=== PATIENT | female | born 1985 | race Caucasian/White ===

== ENCOUNTER → 2017-04-09 14:46 | Observation (INO) ==
[2017-04-09 13:55] LABS: Bilirubin,Urine Negative (Negative); Blood,Urine Negative (Negative); Clarity,Urine Cloudy (Clear); Color,Urine Dark Yellow (Yellow); Glucose,Urine (UA) Normal (Normal); Ketones,Urine Negative (Negative); Leukocyte Esterase,Urine Small (Negative); Nitrite,Urine Negative (Negative); PH,Urine 6.5 pH Units (5.0-8.0); Protein,Urine Trace mg/dL (Neg-Trace); Specific Gravity,Urine 1.025 (1.010-1.025); Urobilinogen,Urine Normal (Normal)
[2017-04-09 13:57] LABS: Bacteria,Urine None Seen per hpf (None-Few); Hyaline Casts,Urine None Seen per lpf (None-Few); Squamous Epithelial Cell,Urine Many per lpf (None-Few)
[2017-04-09 14:05] LABS: RBC,Urine 0-3 per hpf (0-3)
--- NOTE | 2017-04-09 14:45 | Discharge Summary ---
Date of Encounter: 04/09/17 Time of Encounter: 14:44 - Discharge Diagnosis (1) 28 weeks gestation of Priority: Primary Status: Acute Comments: Patient admitted for observation for labor (2) NST (non-stress test) reactive on surveillance Priority: Secondary Status: Acute Comments: 130 bpm moderate variability +15x15 accels no decels noted. No contractions. (3) Round ligament pain Priority: Secondary Status: Acute Comments: comfort measures discussed - Discharge Medications Home Medications: Buspar 04/09/17 [History] Subutex 8 mg PO BID 04/09/17 [History] Allergies/Adverse Reactions: Allergies aspirin Allergy (Intermediate, Verified 05/19/15 11:58) Hives Penicillins Allergy (Intermediate, Verified 05/19/15 11:57) Hives clindamycin Allergy (Verified 10/20/16 10:34) Hives ibuprofen Adverse Reaction (Verified 08/10/16 08:43) Nausea tramadol Adverse Reaction (Verified 08/10/16 08:43) Nausea CONTROL Allergy (Uncoded 05/16/16 14:06) See Comments PT STATES IM ALLERGIC TO 75% OF CONTROL PINK/RED DYE Allergy (Uncoded 05/16/16 14:06) See Comments PT STATES IM ALLERGIC TO ANYTHING WITH RED OR PINK DYE Data Procedures and tests throughout hospitalization: Laboratory Tests 04/09/17 13:41 Urine Color Dark Yellow Urine Clarity Cloudy A Urine pH 6.5 Ur Specific [place]on 1.025 Urine Protein Trace Urine Glucose (UA) Normal Urine Ketones Negative Urine Blood Negative Urine Nitrite Negative Urine Bilirubin Negative Urine Urobilinogen Normal Ur Leukocyte Esterase Small H Urine Microscopic RBC 0-3 Urine Microscopic WBC 5-15 H Ur Squamous Epith Cells Many H Urine Bacteria None Seen Hyaline Casts None Seen Ur Culture Indicated? YES A Labs on day of discharge: Labs from last 24 hours 04/09/17 13:41 Urine Color Dark Yellow Urine Clarity Cloudy A Urine pH 6.5 Ur Specific Bouton 1.025 Urine Protein Trace Urine Glucose (UA) Normal Urine Ketones Negative Urine Blood Negative Urine Nitrite Negative Urine Bilirubin Negative Urine Urobilinogen Normal Ur Leukocyte Esterase Small H Urine Microscopic RBC 0-3 Urine Microscopic WBC 5-15 H Ur Squamous Epith Cells Many H Urine Bacteria None Seen Hyaline Casts None Seen Ur Culture Indicated? YES A Date of admission: 04/09/17 13:22 Primary care physician: Rosa Robles CNP Discharging clinician: Veronica Alonso Anticipated date of discharge: 04/09/17 - Patient Status Disposition: Home, Self-Care Condition: Good - Discharge Instructions Follow Up With: Rosa Robles CNP [Primary Care Provider] - Additional Instructions: LABOR AND DELIVERY DISCHARGE INSTRUCTIONS Signs and Symptoms to be Reported to your Doctor Immediately: * Sudden gush, continuous or intermittent lead of fluid from vagina (note the time of gush and color of fluid) * Onset of bright red vaginal bleeding with or without pain (if you had a vaginal exam during this visit you may notice some dark red spotting. This is normal.) * Lower abdominal cramping or backache that is premenstrual-like feeling. * More than 6 contractions in one hour. * Burning during urination, having to urinate more frequently or pain in your mid-back. * A change in the baby's activity. This could be an increase or decrease in activity. * Severe headache which does not go away with tylenol. * Sudden swelling in the face, hands, arms and/or legs. * Upper abdominal pain - sometimes associated with heartburn or nausea and is not relieved by Maalox, Mylanta or Tums. * Dizziness or blurred vision or visual disturbances (seeing stars/lights). * Kick Counts One hour after a meal, lay down on one side in a quiet place. Count the number of lay the baby moves during an hour. If less than 6 movements, notify your physician. Diet: *Force fluids - 8-10 tall glasses of fluid per day. May include popsicles and jello. *Limit caffeine - this includes chocolate, coffee, tea, any soft drink containing such as all jr, Arvin Yellow and Mountain Dew - Diet and Activity Activity: increase activity as tolerated Diet: regular diet Hospital Course LATEX DIPPER Hospital course: Patient is 32 y/o @ 28 weeks gestation presents to labor and delivery with complaints of sharp abdominal pain and lightheadedness. Patient has not ate anything and only drank a mountain dew. Patient denies LOF or VB. Patient reports +FM. UA sent to lab and WNL. Patient tender over round ligaments. Patient encouraged to drink water and eat frequent meals. Time Attestation: Total time spent providing and/or coordinating discharge services: Time Spent: Less than 30 minutes Exam - Constitutional General appearance IM: A&O X 3, pleasant, answers questions appropriately - Respiratory Respiratory exam: Present: CTAB - Cardiovascular Cardiovascular exam IM: Present: RRR, +S1, +S2 - GI/Abdominal GI/Abdominal exam IM: normal bowel sounds - Extremities Exam Extremities exam IM: Present: full ROM, normal capillary refill, normal inspection - Neurological Exam Neurological exam: alert, oriented X3, reflexes normal - Skin Additional comments: FHR 130 bpm moderate variability +15x15 accels no decels noted. No contractions noted. CAt. 1 tracing. - VTE Reasons for not Prescribing Prophylaxis: Treatment not Indicated - Low risk for VTE
== END | disposition home or self-care (01) ==
LOC: 1NENULAB

== ENCOUNTER → 2017-05-09 17:35 | Observation (INO) ==
[2017-05-09 16:10] LABS: Amphetamine Screen,Urine Negative ng/mL (Cutoff=1000); Barbiturate Screen,Urine Negative ng/mL (Cutoff=200); Benzodiazepines Screen,Urine Negative ng/mL (Cutoff=200); Cannabinoid Screen,Urine Negative ng/mL (Cutoff = 50); Cocaine Screen,Urine Negative ng/mL (Cutoff= 300); Opiate Screen,Urine Negative ng/mL (Cutoff=300); Phencyclidine Screen,Urine Negative ng/mL (Cutoff=25)
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
[~2017-05-09 17:35] MED LIST: Terbutaline 1 MG/ML VIAL SQ ONE
== END | disposition home or self-care (01) ==
LOC: 1NENULAB
PROVIDERS: ADMIT Obstetrics & Gynecology; ATTEND Obstetrics & Gynecology

== ENCOUNTER 2017-06-05 20:00 | Inpatient (IN) ==
[2017-06-05] MEDS ORDERED: Ondansetron 4 MG/2 ML VIAL IVP PRN (20:22)
[2017-06-05] MEDS ORDERED: Famotidine 20 MG/2 ML VIAL IVP PRN (20:22)
[2017-06-05] MEDS ORDERED: Naloxone 0.4 MG/ML INJ IVP PRN (20:22)
[2017-06-05] MEDS ORDERED: Ringers Solution, Lactated 1,000 ML IVC SCH (20:30)
[2017-06-05 21:23] LABS: Basophils % 0.2 %; Eosinophils # 0.3 K/mcL (0.0-0.6); Eosinophils % 3.8 %; Hematocrit 40.2 % (35.3-44.9); Hemoglobin 13.6 g/dL (11.5-15.4); Immature Granulocytes % 0.2 % (0-4); Immature Platelets 6.2 % (1.1-6.1); Lymphocytes # 1.6 K/mcL (0.6-4.6); Lymphocytes % 18.3 %; Mean Corpuscular HGB Conc 33.8 g/dL (31.6-35.5); Mean Corpuscular Hemoglobin 29.6 pg (28.0-33.3); Mean Corpuscular Volume 87.4 fL (83.0-100.0); Mean Platelet Volume 10.6 fL (9.4-12.4); Neutrophils # 5.7 K/mcL (1.6-8.9); Platelet Count 239 K/mcL (140-400); Red Cell Distribution Width 12.3 % (11.5-14.5); Segmented Neutrophils % 66.5 %
--- NOTE | 2017-06-05 21:30 | OB/GYN History & Physical ---
Date of Encounter: 06/05/17 Time of Encounter: 21:21 Assessment and Plan (1) 36 weeks gestation of Current visit: Yes Status: Acute Patient admitted for IOL PO cytotec at 0400 (2) IUGR (intrauterine growth restriction) Current visit: Yes Status: Acute admit for IOL (3) Tobacco use Current visit: Yes Status: Acute smoking cessation education given Nicotine patch if needed (4) complicated by subutex maintenance, antepartum Current visit: Yes Status: Acute Continue subutex as prescribed. (5) History of marijuana use Current visit: Yes Status: Acute UDS History of Present Illness Chief complaint: Schedule induction of labor for Severe IUGR HPI: Ms. Peterson is a 32 year old female at 36w3d presents for medical induction of labor for severe IUGR for Dr. Marquez. Ultrasound today gave EFW 1956g or 4#5oz <10%tile. KORIN 10cm 195 gram wt growth since 05/20/17. SD ratio 2.54/.61. Patient's is complicated by bipolar depression with major depression, HX of marijuana use, opiate abuse during , tobacco use and Subutex maintenance in . Patient reports + FM and irregular contractions. Patient denies LOF or VB. SVE in office today was /-1. Blood type: B+, Rubella: Immune, Hep B: nonreactive, GBS: Negative. Past Med Surg Social Fam HX - Past Medical History Source: patient Medical history: cancer Psychiatric history: bipolar, depression - Past Surgical History Surgical History: breast surgery, other - Social History Smoking Status: Current every day smoker Smokeless Tobacco Status: No Alcohol use: none Drug use: opiates (percocet, vicodin), marijuana, other (on subutex ) Current living situation: Home - Independent Activity Level: Independent ambulation Recent Out of Country Travel Within the Last 8 Weeks: No Exposure or Possible Exposure to Illness During Travel: No - Family History Mother Hx Family Endocrine Disorder: Yes (thyroid disorder) Obstetrical History - Pregnancies : 3 Para: 1 Term: 1 : 0 Ab's: 1 (ectopic) Livin Medications and Allergies Buspar 10 mg PO BID 04/09/17 [History] Subutex 8 mg PO BID 04/09/17 [History] 3 Allergy/AdvReac Type Severity Reaction Status Date / Time aspirin Allergy Intermediate Hives Verified 05/19/15 11:58 Penicillins Allergy Intermediate Hives Verified 05/19/15 11:57 clindamycin Allergy Hives Verified 10/20/16 10:34 ibuprofen AdvReac Nausea Verified 08/10/16 08:43 tramadol AdvReac Nausea Verified 08/10/16 08:43 CONTROL Allergy See Uncoded 05/16/16 14:06 Comments PINK/RED DYE Allergy See Uncoded 05/16/16 14:06 Comments Review of System OB - Constitutional Constitutional ROS IM: no fever(s), no headache(s) - Cardiovascular Cardiovascular: no chest pain, no palpitations, no syncope - Respiratory Respiratory: no dyspnea - Gastrointestinal Gastrointestinal: no abdominal pain, no constipation, no diarrhea, no heartburn , no nausea, no vomiting - Genitourinary Genitourinary: no abnormal vaginal bleeding, no dysuria, no flank pain, no urinary frequency, no urinary urgency, no vaginal discharge, no vaginal odor, no vaginal pruritis Exam - Constitutional Constitutional: well developed, well nourished, no acute distress, thin - HEENT HEENT: Normocephaly, Mucus Membranes Moist - Neck Neck exam: full ROM, supple - Lungs Respiratory exam: CTAB - Cardiovascular Cardiovascular exam: RRR, +S1, +S2 - Abdomen Abdomen: Present: bowel sounds normal, gravid, non tender - Extremities Extremities exam: full ROM, normal capillary refill Deep Tendon Reflex Grade: 2+ Normal - Comments Comments: FHR 130 bpm moderate variability +15x15 accels no decels noted. Cat. 1 tracing. No contractions noted at this time. Results All other labs normal. - VTE Reasons for not Prescribing Prophylaxis: Treatment not Indicated - Low risk for VTE
[2017-06-05 22:01] LABS: Amphetamine Screen,Urine Negative ng/mL (Cutoff=1000); Barbiturate Screen,Urine Negative ng/mL (Cutoff=200); Benzodiazepines Screen,Urine Negative ng/mL (Cutoff=200); Cannabinoid Screen,Urine Negative ng/mL (Cutoff = 50); Cocaine Screen,Urine Negative ng/mL (Cutoff= 300); Opiate Screen,Urine Negative ng/mL (Cutoff=300); Phencyclidine Screen,Urine Negative ng/mL (Cutoff=25)
[2017-06-05] MEDS ORDERED: NON-FORMULARY MEDICATION 1 EACH EACH (Subutex 8 MG) PO SCH (23:45)
[2017-06-05] MEDS ORDERED: Nicotine 21 MG PATCH.TD24 TD SCH (23:45)
[2017-06-06] MEDS: *HR* Buprenorphine HCl 8 MG TAB.SUBL SL SCH ×2 (00:23→12:54)
[2017-06-06] MEDS ORDERED: miSOPROStol 100 MCG TABLET PO ONE (04:00)
[2017-06-06] MEDS ORDERED: Vicks Vaporub Oint 50 GM PACKAGE TP ONE (05:06)
[2017-06-06] MEDS ORDERED: Epidural Premix (fent/bupiv) 110 ML EP ONE (07:59)
--- NOTE | 2017-06-06 08:31 | Anesthesia Procedures ---
Date of Encounter: 06/06/17 Time of Encounter: 08:22 Procedures: Anesthesia - Epidural/Spinal Patient ID/Chart reviewed: Yes Patient examined: Yes OB Eval: Gestational age: 36 OB Eval: : 3 OB Eval: Hx Para: 1 OB Eval: Dilated at (cm): 4 OB Eval: Contractions: Non-stressed pattern Consent Obtained: Yes Supplemental Oxygen: None/Room Air Site Prep: Aseptic Technique, Sterile prep and drape, 0.5% Chlorhexidine/Alcohol Patient position: right lateral decubitus Local Anesthetic: Lidocaine 1% Amount of Local Anesthetic used: 2 Touhy Needle Gauge: 18 Touhy Needle Depth (cm): 5 Catheter Depth at Skin (cm): 9 Test Dose (1.5% Lido + Epi): Volume given (mls): 3 Test Dose Result: Negative Loading Dose: Other: 12ml from solution Loading Dose Administered: Thru Catheter Infusion Med: 0.125% Bupivacaine w/ 2 mcg/ml Fentanyl Infusion Rate (mls/hr): [address]: Tegaderm, Tape Interspace Used: L4-L5 Loss of Resistance (MILDRED): Yes (saline ) Blood: No CSF: No Paresthesia: No Procedure: vss though out, FHR stable per RN's
--- NOTE | 2017-06-06 08:34 | Anesthesia Evaluation PreOp ---
Date of Encounter: 06/06/17 Time of Encounter: 07:52 - Past History Planned Operation: vaginal del, , 36wk...IUGR measuring 30 wks Cardiac History: Denies any Significant Hx Pulmonary History: Denies Any Significant HX Other Medical History: Thyroid (no replacement therapy), Other (Bipolar, hx. of severe depression, cervical CA, previous drug abuse on subutex.) Anesthesia History: No Prior Anesthetic Complications, Past Anesthesia ( previous Difficult epidural placement bad scolisis.) : Yes (36 IUGR) Alcohol Use: none Drug use: opiates (percocet, vicodin), marijuana, other (on subutex ) Medications and Allergies Buspar 10 mg PO BID 04/09/17 [History] Subutex 8 mg PO BID 04/09/17 [History] Melatonin 1 mg Tablet 06/06/17 [History] MiraLAX 06/06/17 [History] 3 Allergy/AdvReac Type Severity Reaction Status Date / Time aspirin Allergy Intermediate Hives Verified 06/06/17 00:26 Penicillins Allergy Intermediate Hives Verified 06/06/17 00:26 clindamycin Allergy Hives Verified 06/06/17 00:26 ibuprofen AdvReac Nausea Verified 06/06/17 00:26 tramadol AdvReac Nausea Verified 06/06/17 00:26 CONTROL Allergy See Uncoded 05/16/16 14:06 Comments PINK/RED DYE Allergy See Uncoded 05/16/16 14:06 Comments Anesthesia Results - Labs 06/05/17 21:10 Anesthesia Exam - HEENT Pupil (Motor): Pupils equal Mallampati: II Teeth: Missing, Poor dentition Oral Opening: Greater than 3 - ENDOSCOPY RN LOC: Oriented ENDOSCOPY RN Motor: Normal RUE, Normal LUE, Normal RLE, Normal LLE, Normal Face ENDOSCOPY RN Sensory: Normal: RUE, LUE, RLE, LLE, Face - Cardiac Rhythm: Regular Murmur: None - Pulmonary Breath Sounds: bilateral Clear Respiratory Effort: Symmetrical Anesthesia Assess/Plan ASA Score: 2 Modified Kena Scale for Level of Consciousness: Cooperative, oriented, and tranquil Anesthetic Plan: General, Regional Monitoring Plan: Standard Monitors Recovery Plan: PACU
--- NOTE | 2017-06-06 09:16 | OB Labor Progress Note ---
Date of Encounter: 06/06/17 Time of Encounter: 09:15 Labor Progress Note - Subjective Subjective: Patient is comfortable after her epidural no longer feeling the contractions - Cervix Cervix: 4/90/0 AROM clear fluid - Heart Tones Heart Tones: heart tones 140s reactive - Hermann Hermann: Contractions every 2 minutes - Plan Plan: Anticipate normal spontaneous vaginal delivery
[2017-06-06] MEDS ORDERED: 0.9 % Sodium Chloride 1,000 ML ONE (10:07)
[2017-06-06] MEDS ORDERED: Oxytocin 20 units/ LR 1000 mL 20 UNIT/1,000 ML BAG IVC ONE ×2 (10:46→14:12)
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
[2017-06-06] MEDS ORDERED: Measles/Mumps/Rubella Vacc 0.5 ML VIAL SQ PRN (19:55)
[2017-06-06] MEDS ORDERED: Acetaminophen 325 MG TABLET PO PRN (19:55)
[2017-06-06] MEDS ORDERED: Oxytocin 20 units/ LR 1000 mL 20 UNIT/1,000 ML BAG IVC SCH (19:55)
[2017-06-06] MEDS: *HR* Buprenorphine HCl 2 MG SUBLINGUAL TABLET SL SCH (20:55)
[2017-06-06] MEDS ORDERED: Nicotine 21 MG PATCH.TD24 TD SCH (23:45)
[2017-06-07 07:18] LABS: Basophils % 0.3 %; Eosinophils # 0.3 K/mcL (0.0-0.6); Eosinophils % 3.4 %; Hematocrit 38.7 % (35.3-44.9); Hemoglobin 12.6 g/dL (11.5-15.4); Immature Granulocytes % 0.3 % (0-4); Lymphocytes # 1.7 K/mcL (0.6-4.6); Lymphocytes % 16.8 %; Mean Corpuscular HGB Conc 32.6 g/dL (31.6-35.5); Mean Corpuscular Volume 89.2 fL (83.0-100.0); Mean Platelet Volume 10.9 fL (9.4-12.4); Monocytes % 10.4 %; Neutrophils # 6.8 K/mcL (1.6-8.9); Platelet Count 180 K/mcL (140-400); Red Blood Count 4.34 M/mcL (3.82-4.97); Red Cell Distribution Width 12.2 % (11.5-14.5); Segmented Neutrophils % 68.8 %
--- NOTE | 2017-06-07 07:52 | Anesthesia Evaluation PreOp ---
Date of Encounter: 06/07/17 - Past History Planned Operation: BPS Cardiac History: Denies any Significant Hx Pulmonary History: Denies Any Significant HX [employer] History: Other (Bipolar disorder, scoliosis, severe depression) Other Medical History: Other (drug abuse on subutex, hx cervical cancer) Alcohol Use: none Drug use: opiates (percocet, vicodin), marijuana, other (on subutex ) Medications and Allergies Buspar 10 mg PO BID 04/09/17 [History] Subutex 8 mg PO BID 04/09/17 [History] Melatonin 1 mg Tablet 06/06/17 [History] MiraLAX 06/06/17 [History] 3 Allergy/AdvReac Type Severity Reaction Status Date / Time aspirin Allergy Intermediate Hives Verified 06/06/17 00:26 Penicillins Allergy Intermediate Hives Verified 06/06/17 00:26 clindamycin Allergy Hives Verified 06/06/17 00:26 ibuprofen AdvReac Nausea Verified 06/06/17 00:26 tramadol AdvReac Nausea Verified 06/06/17 00:26 CONTROL Allergy See Uncoded 05/16/16 14:06 Comments PINK/RED DYE Allergy See Uncoded 05/16/16 14:06 Comments - Meds/Allergy Pre-op Review Medications Reviewed: Yes Allergies Reviewed: Yes Beta Blockers on Current Med List: No Anesthesia Results - Labs 06/07/17 06:22 Anesthesia Exam Last Vital Signs Temp 97.7 F 06/07/17 05:19 Pulse 70 06/07/17 05:19 Resp 14 06/07/17 05:19 BP 104/67 06/07/17 05:19 Pulse Ox 98 06/07/17 05:19 Weight: 52kg - HEENT Pupil (Motor): Pupils equal, EOMI Mallampati: II Teeth: Missing, Poor dentition Oral Opening: Greater than 3 - [employer] LOC: Oriented - Cardiac Rhythm: Regular Murmur: None - Pulmonary Breath Sounds: bilateral Clear Respiratory Effort: Symmetrical Anesthesia Assess/Plan ASA Score: 2 Anesthetic Plan: General Monitoring Plan: Standard Monitors Recovery Plan: PACU
[2017-06-07] MEDS: *HR* Buprenorphine HCl 2 MG SUBLINGUAL TABLET SL SCH ×2 (12:28→23:19)
[2017-06-07] MEDS: Prenatal Vit/FA 1 EACH TABLET PO SCH (12:28)
--- NOTE | 2017-06-07 12:42 | OB/GYN Progress Note ---
Date of Encounter: 06/07/17 Time of Encounter: 12:40 - Assessment and Plan (1) Status post vaginal delivery Current Visit: Yes Status: Acute Continue post- management Patient requests BPS tomorrow as it was delayed today. NPO at midnight (2) IUGR (intrauterine growth restriction) Current Visit: Yes Status: Acute (3) Tobacco use Current Visit: Yes Status: Chronic (4) complicated by subutex maintenance, antepartum Current Visit: Yes Status: Chronic Continue home dose of 8mg BID (5) History of marijuana use Current Visit: Yes Status: Chronic UDS negative for THC Subjective - Subjective Principal diagnosis: s/p vaginal delivery Interval history: Patient doing well overnight. Her BPS was delayed this morning, so she would like to have it tomorrow. Mild abdominal discomfort, otherwise doing well. Patient reports: voiding normally, pain well controlled, ambulating normally [place]: doing well Objective - Latest Vital Signs Latest vital signs: Vital Signs Temp Pulse Pulse Resp BP Pulse Ox 06/07/17 10:11 98.3 F 58 12 102/65 97 06/07/17 05:19 97.7 F 61 70 14 104/67 98 06/06/17 21:01 97.5 F L 71 16 131/83 97 06/06/17 18:15 97.9 F 51 16 122/79 97 06/06/17 17:15 98.1 F 55 16 129/84 98 06/06/17 16:15 97.7 F 50 18 154/80 100 Intake and Output 06/06/17 06/07/17 06/07/17 23:59 07:59 15:59 Output Total 2350 / 2350 900 / 900 500 / 500 Balance -2350 / -2350 -900 / -900 -500 / -500 Output: Urine 2350 / 2350 900 / 900 500 / 500 Other: Stool Characteristics Normal for Patient # Bowel Movements 1 - Exam Lungs: bilateral: normal Chest: Normal S1, Normal S2 Extremities: Present: normal Abdomen: Present: normal appearance, soft Uterus: Present: normal, firm Uterus Position: 2 Fingers Below Umbilicus - Labs Labs: Laboratory Results - last 24 hr 06/07/17 06:22 WBC 9.9 RBC 4.34 Hgb 12.6 Hct 38.7 MCV 89.2 MCH 29.0 MCHC 32.6 RDW 12.2 Plt Count 180 MPV 10.9 Immature Gran % 0.3 Seg Neutrophils % 68.8 Lymphocytes % 16.8 Monocytes % 10.4 Eosinophils % 3.4 Basophils % 0.3 Neutrophils # 6.8 Lymphocytes # 1.7 Monocytes # 1.0 Eosinophils # 0.3 Basophils # 0.0 - Attending Attestation I examined this patient and my medical decision-making was reviewed with the Resident Physician. I agree with the documented findings, disposition and treatment plan as described except to the extent set forth below.
[2017-06-08 08:20] VITALS: BP 105/61
[2017-06-08] MEDS: Prenatal Vit/FA 1 EACH TABLET PO SCH (09:14)
[2017-06-08] MEDS: *HR* Buprenorphine HCl 2 MG SUBLINGUAL TABLET SL SCH (09:17)
--- NOTE | 2017-06-08 09:23 | Discharge Summary ---
Date of Encounter: 06/08/17 Time of Encounter: 09:18 - Discharge Diagnosis (1) Status post vaginal delivery Priority: Primary Status: Acute Comments: Pt meeting milestones. Pain well managed on po pain medication. , pt desires discharge. - Discharge Medications Prescriptions: Docusate [Colace] 100 mg PO BID #60 capsule Home Medications: Buspar 10 mg PO BID 04/09/17 [History] Subutex 8 mg PO BID 04/09/17 [History] Melatonin 1 mg Tablet 06/06/17 [History] MiraLAX 06/06/17 [History] Acetaminophen [Tylenol] 650 mg PO Q6HR PRN tablet 06/08/17 [Rx] Buprenorphine HCl [Subutex] 8 mg SL BID tab.subl 06/08/17 [Rx] Docusate [Colace] 100 mg PO BID #60 capsule 06/08/17 [Rx] Nicotine Patch [Nicoderm] 21 mg TD DAILY patch.td24 06/08/17 [Rx] Vit/FA 1 each PO DAILY tablet 06/08/17 [Rx] Allergies/Adverse Reactions: 3 Allergy/AdvReac Type Severity Reaction Status Date / Time aspirin Allergy Intermediate Hives Verified 06/06/17 00:26 Penicillins Allergy Intermediate Hives Verified 06/06/17 00:26 clindamycin Allergy Hives Verified 06/06/17 00:26 ibuprofen AdvReac Nausea Verified 06/06/17 00:26 tramadol AdvReac Nausea Verified 06/06/17 00:26 CONTROL Allergy See Uncoded 05/16/16 14:06 Comments PINK/RED DYE Allergy See Uncoded 05/16/16 14:06 Comments Data Procedures and tests throughout hospitalization: Laboratory Tests 06/05/17 06/05/17 06/07/17 21:10 21:30 06:22 WBC 8.6 9.9 RBC 4.60 4.34 Hgb 13.6 12.6 Hct 40.2 38.7 MCV 87.4 89.2 MCH 29.6 29.0 MCHC 33.8 32.6 RDW 12.3 12.2 Plt Count 239 180 MPV 10.6 10.9 Immature Gran % 0.2 0.3 Seg Neutrophils % 66.5 68.8 Lymphocytes % 18.3 16.8 Monocytes % 11.0 10.4 Eosinophils % 3.8 3.4 Basophils % 0.2 0.3 Neutrophils # 5.7 6.8 Lymphocytes # 1.6 1.7 Monocytes # 1.0 1.0 Eosinophils # 0.3 0.3 Basophils # 0.0 0.0 Immature Plt Fraction 6.2 H Urine Opiates Screen Negative Ur Barbiturates Screen Negative Ur Phencyclidine Scrn Negative Ur Amphetamines Screen Negative U Benzodiazepines Scrn Negative Urine Cocaine Screen Negative U Marijuana (THC) Screen Negative Date of admission: 06/05/17 20:17 Primary care physician: PCP NONE Consults: 06/06/17 19:55 Consult to Leader Tier [CONS] Routine Comment: Vaginal delivery, consult needed Consult to Field Sales Representative [CONS] Routine Reason for SW Consult: subutex use in group Discharging clinician: Kaley Krishnan Anticipated date of discharge: 06/08/17 - Patient Status Disposition: Home, Self-Care Condition: Good Functional capacity at discharge: independent ambulation Overall status at discharge: patient is back to baseline - Discharge Instructions Follow Up With: NONE,PCP [Primary Care Provider] - - Diet and Activity Activity: resume usual activities as tolerated Diet: advance to your usual diet, regular diet Hospital Course Reason for admission: IUP - , induction of labor Delivery: Episiotomy: none Laceration: none Other procedures: none complications: none Discharge diagnosis: delivery [place] baby: female Hospital course: Delivery - Delivery Date: 06/06/17 Provider: Arnaldo Marquez Intrapartum events: none Delivery induction: cervidil Delivery augmentation: rupture of membranes Delivery monitor: external FHT, external uterine, internal FHT, internal uterine Anesthesia: epidural Estimated Blood Loss: 100 - (s) A Delivery Date: 06/06/17 Delivery Time: 12:27 Presentation: vertex Position: NEHEMIAS Route of delivery: Gender: Female Viability: Viable Pounds: 4 Ounces: 5 Weight Gram: 1.955 kg at 1 minute: 8 at 5 mins: 9 Shoulder Dystocia: not encountered Specimens collected: cord blood Placenta: spontaneous Cord: 3 umbilical vessels - Repair Episiotomy: none Laceration Description: None - Complications Delivery complications: none Delivery comments: Patient is a 32-year-old 4 para 1021 at 36-4/7 weeks who is brought in for induction of labor secondary to severe IUGR. Patient had fallen significantly off the growth curve and baby was no longer growing and Dopplers were getting worse. Patient been discussed with maternal medicine who recommended a patient's most recent ultrasound did not show significant growth to deliver due to hostile environment. Patient reports to labor and delivery she was given Cytotec by mouth which put patient in labor. After epidural she was artificially ruptured clear fluid. Patient progressed appropriately started having deep variable decelerations but was rapidly changing. With positional changes were able to keep the baby stable and an amnioinfusion was started. Once the patient was complete patient push twice delivering a viable female infant in left occiput anterior presentation at 1227. There was no nuchal cord, no meconium, infant was bulb suctioned on the abdomen, Apgars were 8 at one, 9 at 5 months, infant weight was 4 lbs. 5 oz. Placenta was then delivered spontaneously with a three-vessel cord, cloud automation tester is Dr. Marquez, anesthesia epidural, estimated blood loss 100 mL. Perineum cervix and vagina was visualized intact. She will be observed 2 hours before being taken this before. Patient is wanting a tubal ligation she will be made nothing by mouth after midnight for that procedure in the morning. - Disposition Mom disposition: stable in PP and appropriate for discharge Time Attestation: Total time spent providing and/or coordinating discharge services: Exam - Constitutional Vitals: Temp Pulse Resp BP Pulse Ox 98.0 F 54 16 105/61 99 06/08/17 07:30 06/08/17 07:30 06/08/17 07:30 06/08/17 07:30 06/07/17 20:20 General appearance IM: A&O X 3 - Respiratory Respiratory exam: Present: CTAB - Cardiovascular Cardiovascular exam IM: Present: RRR - GI/Abdominal GI/Abdominal exam IM: soft - Uterine Tone: Firm Uterus Position: At Umbilicus - Extremities Exam Extremities exam IM: Present: normal capillary refill, normal inspection - Neurological Exam Neurological exam: normal gait, oriented X3 - Psychiatric Additional comments: reports good mood
== END 2017-06-08 10:45 | disposition home or self-care (01) | DRG 560 ==
LOC: 1NENULAB 20:17 → 1NENUOBS 06-06 16:24
PROVIDERS: ADMIT Student in an Organized Health Care Education/Training Program; ATTEND Student in an Organized Health Care Education/Training Program